=== PATIENT | female | born 1985 | race Caucasian/White ===

== ENCOUNTER → 2020-07-25 | Outpatient (REF) | payer OTHER | LOC: M SFHCWAGY 13:37 | PROVIDERS: ATTEND Advanced Practice Midwife | DX: N39.0 Urinary tract infection, site not specified (principal); Z01.419 Encounter for gynecological examination (general) (routine) without abnormal findings ==

== ENCOUNTER → 2020-08-21 | Outpatient (CLI) | payer OTHER ==
--- NOTE | 2020-08-21 18:13 | REP ---
INDICATION: N93.0 POST COITAL BLEEDING COMPARISON: None. TECHNIQUE: Transabdominal pelvic ultrasound followed by transvaginal examination for better evaluation of the endometrium and adnexa with color evaluation of the ovaries. FINDINGS: Bladder is unremarkable and measures approximately 10.5 x 4.9 x 6.0 cm. Heterogeneous anteverted uterus measures 6.5 x 2.9 x 3.9 cm. The endometrial complex measures 2.8 mm thickness. No significant discrete uterine abnormalities noted. Bilateral ovaries are normal in appearance and vascularity without evidence for torsion. Right ovary measures 3.4 x 2.0 x 2.1 cm; left ovary measures 2.9 x 1.7 x 2.1 cm. No pelvic fluid or adnexal mass lesion. IMPRESSION: Normal pelvic ultrasound. <Electronically signed by Luís Garcia > 08/21/20 [id number]
== END ==
LOC: M WHC 14:56
PROVIDERS: ATTEND Advanced Practice Midwife
DX: N93.0 Postcoital and contact bleeding (principal)